=== PATIENT | male | born 1970 | race Caucasian/White ===

== ENCOUNTER → 2018-07-08 | Outpatient (CLI) | payer OTHER ==
[2018-07-08 15:05] LABS: HCT 47.3 % (39.0-53.0); HGB 15.9 gm/dL (13.0-17.5); MCH 29.9 pg (25.0-35.0); MCHC 33.5 g/dL (31.0-37.0); MCV 89.3 fL (80.0-100.0); Mean Platelet Volume 6.7; Platelet Count 291 k/uL (150-450); RDW 12.9 % (11.5-15.5); WBC 9.5 k/uL (3.8-10.6)
[2018-07-08 15:18] LABS: Anion Gap 6 mmol/L; Blood Urea Nitrogen 13 mg/dL (9-20); Carbon Dioxide 29 mmol/L (22-30); Chloride 105 mmol/L (98-107); Potassium 4.1 mmol/L (3.5-5.1); Sodium 140 mmol/L (137-145)
== END ==
LOC: LABPAT 14:15
PROVIDERS: ATTEND Internal Medicine Interventional Cardiology
DX: Z01.812 Encounter for preprocedural laboratory examination (principal); E78.2 Mixed hyperlipidemia; R07.9 Chest pain, unspecified; R94.39 Abnormal result of other cardiovascular function study
CPT/HCPCS: 36415; 80051; 82565; 84520; 85027

== ENCOUNTER 2018-07-20 09:18 | Day surgery (SDC) | payer OTHER ==
[~2018-07-20 09:18] MED LIST: ALPRAZolam 0.25 MG TAB PO PRN; ALPRAZolam 0.5 MG TAB PO PRN; ASPIRIN 325 MG TAB PO STA; ATORVASTATIN 80 MG TAB PO STA; NITROGLYCERIN SL TABS 0.4 MG TAB SUBLINGUAL PRN; SODIUM CHLORIDE 0.9% 1,000 ML in EMPTY BAG 1 BAG IV ONE
[2018-07-20] MEDS ORDERED: fentaNYL (PF) 50 MCG/ML 2 ML AMP ONE (10:29)
[2018-07-20] MEDS ORDERED: HEPARIN SODIUM 1,000 UN/ML (10ML VL) ONE (10:29)
[2018-07-20] MEDS ORDERED: VERAPAMIL 2.5 MG/ML 2 ML AMP ONE (10:29)
[2018-07-20] MEDS ORDERED: fentaNYL (PF) 50 MCG/ML 2 ML AMP IV ONE (10:38)
[2018-07-20] MEDS ORDERED: LIDOCAINE 1% INJ 10MG/ML (20 ML MDV) SQ ONE (10:47)
[2018-07-20] MEDS ORDERED: MIDAZOLAM 2 MG/2 ML VIAL ONE (10:48)
[2018-07-20] MEDS ORDERED: VERAPAMIL SYRINGE (5 MG/10 ML) INTRAARTER ONE (10:49)
[2018-07-20] MEDS: MIDAZOLAM 2 MG/2 ML VIAL IV ONE ×2 (10:49→11:05)
[2018-07-20] MEDS ORDERED: IOPAMIDOL-370 50ML BTL INJ ONE ×2 (10:59→11:28)
[2018-07-20] MEDS ORDERED: ADENOSINE 180 MG in SODIUM CHLORIDE 0.9% 30 ML IVP ONE (11:12)
[2018-07-20] MEDS ORDERED: PRASUGREL 10 MG TAB ONE (11:16)
[2018-07-20] MEDS ORDERED: PRASUGREL 10 MG TAB PO ONE (11:18)
[2018-07-20] MEDS ORDERED: IOPAMIDOL-370 125ML BTL INJ ONE (11:20)
[2018-07-20] MEDS ORDERED: NITROGLYCERIN 1000MCG/10ML SYRINGE INTRACORON ONE (11:22)
[2018-07-20] MEDS ORDERED: RX INFO: IV CONTRAST WAS GIVEN 1 EACH MISC MISCELLANE PRN (11:43)
[2018-07-20] MEDS ORDERED: NITROGLYCERIN SL TABS 0.4 MG TAB SUBLINGUAL PRN (11:43)
[2018-07-20] MEDS ORDERED: MAG HYDROX/AL HYDROX/SIMETH 30 ML CUP PO PRN (11:43)
[2018-07-20] MEDS ORDERED: ZOLPIDEM 5 MG TAB PO PRN (11:43)
[2018-07-20] MEDS ORDERED: ATROPINE SULFATE 0.1 MG/ML 10ML SYRINGE IV PRN (11:43)
[2018-07-20] MEDS ORDERED: SODIUM CHLORIDE 0.9% 1,000 ML IV SCH (11:45)
--- NOTE | 2018-07-20 12:00 | CC ---
CARDIAC CATHETERIZATION REPORT Mr. Morejon is a 48-year-old male with prior history of smoking, history of hyperlipidemia, who has been complaining of episode of chest discomfort as well as dyspnea on exertion. Because of that, he underwent a myocardial perfusion imaging that revealed inferolateral wall inducible ischemia. In view of that, recommendation made regarding cardiac catheterization. The procedures, risks and complications were discussed with the patient who is in full understanding and agreement. PROCEDURE: Patient was brought to propagator laborer in a fasting semi-sedated state after receiving fentanyl and Benadryl and achieving moderate conscious sedated state. Using Xylocaine anesthesia and Seldinger technique, a 6-Hong Konger sheath was introduced in the right radial artery. Selective right and left coronary angiography was performed using 5- Hong Konger 3.5 bend right and left Itzel catheter, multiple views of the coronary artery including hemiaxial views obtained. Following that, a 5-Hong Konger tight pigtail catheter was introduced in the left was introduced in the left ventricle and a 30 degree CHAVARRIA view of the left ventricle was obtained. Following that, catheters were removed, images were reviewed. FINDINGS: FLUOROSCOPY: There is mild calcification involving the proximal LAD. LEFT MAIN: This is a short size vessel, bifurcating into left circumflex, left anterior descending artery. Left main coronary artery has no evidence of high-grade stenosis. LEFT ANTERIOR DESCENDING ARTERY: This is a large-sized vessel, reaching toward the apex, tapers down distal third, giving rise to a large, very proximal diagonal branch. At the takeoff of the first septal deflash and wash operator, there is an eccentric 60%-70% stenosis at the mid segment of the vessel, has mild intimal disease with no evidence of high- grade stenosis up to 30%. LEFT CIRCUMFLEX: This is a large dominant vessel, bifurcating distally into PDA and posterolateral segment branches, giving rise to 2 obtuse marginal branches. The left circumflex as well as branches have no evidence of obstructive coronary artery disease. RIGHT CORONARY ARTERY: This is a small nondominant vessel that has no evidence of high- grade stenosis. LEFT VENTRICULOGRAM: Left ventriculogram is performed in 30 degree CHAVARRIA view and revealed normal left ventricular size and systolic function. Ejection fraction is 60%. There was no significant mitral regurgitation. HEMODYNAMICS: There was no gradient across the aortic valve. The left ventricular end- diastolic pressure was 8-10 mmHg. CONCLUSION: 1. Borderline significant lesion in the proximal left anterior descending artery. 2. Left dominant system. 3. Normal left ventricular size and systolic function. RECOMMENDATION: In view of finding anatomy, I recommend proceeding with a fractional flow reserve measurement of the LAD lesion and depending on that, further recommendation can be made. Those findings and recommendations were discussed with the patient and he was in full understanding and agreement. MMELINAL / MIYAN: [id number] /
--- NOTE | 2018-07-20 12:06 | PTCA ---
PERCUTANEOUSTRANS CORORONARY ANGIOGRAPHY ANGIOPLASTY PROCEDURE NOTE AND FRACTIONAL FLOW RESERVE MEASUREMENT: Mr. Morejon is a 48-year-old male with known history of hyperlipidemia and a prior history of smoking, who has been complaining of episode of chest discomfort and dyspnea on exertion. He had an abnormal myocardial perfusion imaging and underwent cardiac catheterization that revealed a borderline significant lesion in the proximal LAD. In view of that, recommendation was made regarding fractional flow reserve measurement and depending on that, further recommendation will be made. Those findings and recommendation were discussed with the patient and he was in full understanding and agreement. PROCEDURE: A 6-Ethiopian FL 3.5 guiding catheter introduced into the system after cannulating the left main. A Doppler flow wire was advanced across the lesion and positioned in the distal LAD. Subsequently intravenous infusion of adenosine per protocol was performed and a fractional flow reserve was calculated at 71%. At that point, at 3.0 x 18 mm Xience Barbara stent was advanced, deployed and post dilated at 16 atmospheres. After the last inflation, after appropriate wait, the balloon and the guidewire were withdrawn back in the guiding catheter. Images were obtained, repeated. Those images reveal stable successful stenting. At that point, the guiding catheter, the balloon and the guidewire were removed. The sheath was removed. Hemostasis was obtained with deployment of a TR band. There was no immediate complication. Patient was returned to his room in stable condition. Of note, the patient had no chest discomfort or EKG changes with the inflation. He received 10,000 units of intravenous heparin as well as intra-arterial verapamil. His ACT was measured above 300. RESULTS: Successful stenting of the proximal left anterior descending artery with reduction of stenosis from 70% to 0% with a preangioplasty significant fractional flow reserve. RECOMMENDATION: Patient will be continued on aspirin, Effient, and statin. The importance of dual antiplatelet treatment were discussed with the patient his family who are in full understanding and agreement. Duration of procedure is 40 minutes. MMODL / IJN: [id number] /
--- NOTE | 2018-07-20 12:09 | LTR ---
DATE OF SERVICE: 07/20/2018 RE: Darleen Jose Dear Dr. Landry: I had the pleasure to perform coronary angiography on Mr. Morejon at [facility] on July 20, 2018 and a full copy of the procedure note will be forwarded to you. In brief, he was found to have borderline significant lesion in the proximal LAD. I proceeded to measure the fractional flow reserve that suggested a hemodynamically significant lesion and based on those findings, he received a stent in the proximal LAD. I am hopeful that this procedure will stabilize his status and thank you again for allowing me to participate in this patient's care. Please feel free to call for any questions. Sincerely yours, MD MARIELLA Dupont / SEAN: [phone] /
[2018-07-20] MEDS ORDERED: METOPROLOL TARTRATE 25 MG TAB PO STA (12:32)
[2018-07-20] MEDS: METOPROLOL TARTRATE 25 MG TAB PO SCH (20:26)
[2018-07-21 07:27] LABS: Anion Gap 5 mmol/L; Blood Urea Nitrogen 12 mg/dL (9-20); Carbon Dioxide 24 mmol/L (22-30); Chloride 109 mmol/L (98-107); Glucose 119 mg/dL (74-99); Potassium 4.5 mmol/L (3.5-5.1); Sodium 138 mmol/L (137-145)
[2018-07-21] MEDS: METOPROLOL TARTRATE 25 MG TAB PO SCH (08:49)
[2018-07-21] MEDS ORDERED: ATORVASTATIN 80 MG TAB PO SCH (09:00)
[2018-07-21] MEDS ORDERED: ASPIRIN 81 MG PO SCH (09:00)
[2018-07-21 09:10] VITALS: BP 132/70; PULSE 72; RESP 16; TEMP 96.7
[2018-07-21 09:52] VITALS: BMI 35.4
--- NOTE | 2018-07-21 10:23 | PN ---
PROGRESS NOTE Mr. Morejon is a 48-year-old male who presented with evidence of abnormal myocardial perfusion imaging, underwent cardiac catheterization, was found to have a lesion in his proximal LAD and underwent successful stenting of that vessel. He is doing well this morning. He is denying any chest pain. His breathing has been stable. He has no dizziness or palpitation. He continues to be at this time on aspirin once a day, Effient 10 mg daily, Lipitor 80 mg daily, metoprolol tartrate 25 mg twice a day. PHYSICAL EXAMINATION: Blood pressure 132/70 with the heart rate in the 70s. LUNGS: Clear. HEART: Regular rate and rhythm. S1, S2. No S3. No rub. ABDOMEN: Soft, nontender. EXTREMITIES: No edema. Right radial pulse is intact. LAB DATA: Lab data revealed a BUN and creatinine 12 and 0.94. IMPRESSION: 1. Status post stenting of the left anterior descending artery. 2. Hyperlipidemia. RECOMMENDATION: Patient will be discharged home today and followed next week. The importance of dual antiplatelet treatment was discussed with the patient. MARIELLA / MIYAN: [id number] /
[2018-07-21] MEDS ORDERED: PRASUGREL 10 MG TAB PO SCH (12:00)
== END 2018-07-21 12:28 | disposition home or self-care (01) ==
LOC: CATHCVL 09:18 → 3SCARD 14:27 → CATHCVL 07-21 12:28
PROVIDERS: ATTEND Internal Medicine Interventional Cardiology
DX: I25.10 Atherosclerotic heart disease of native coronary artery without angina pectoris (principal); I25.84 Coronary atherosclerosis due to calcified coronary lesion; Z87.891 Personal history of nicotine dependence; E78.2 Mixed hyperlipidemia; E78.00 Pure hypercholesterolemia, unspecified; Z79.82 Long term (current) use of aspirin; Z79.899 Other long term (current) drug therapy
CPT/HCPCS: 93571; 93458; 85347; 80048; C9600; C1887; C1894; C1769; C1874; J2250; J2001; J3010; J0153; J1644; Q9967 ×2

== ENCOUNTER → 2018-10-22 | Outpatient (CLI) | payer BC ==
[2018-10-22 16:38] LABS: LDL Cholesterol,Calculated 63.2 mg/dL (0.0-131.0); VLDL Calculation 15.8 mg/dL (5.00-40.00)
== END | disposition home or self-care (01) ==
LOC: LABWHC1 08:47
PROVIDERS: ATTEND Nurse Practitioner Adult Health
DX: E78.2 Mixed hyperlipidemia (principal)
CPT/HCPCS: 36415; 80061; 84450; 84460

== ENCOUNTER → 2018-12-17 | Outpatient (CLI) | payer BC ==
--- NOTE | 2018-12-17 11:42 | XR ---
EXAMINATION TYPE: XR lumbar spine 2 or 3V DATE OF EXAM: 12/17/2018 CLINICAL HISTORY: pain TECHNIQUE: Three views of the lumbar spine are submitted. COMPARISON: None. FINDINGS: There are 5 lumbar type vertebral bodies identified. The lumbar spine shows satisfactory alignment w ithout evidence of acute fracture or dislocation. Vertebral body heights are within normal limits. Mild degenerative disc space narrowing and spondylosis. The overlying soft tissue appears unremarkab le. IMPRESSION: No acute fracture or dislocation is seen in the lumbar spine. ICD 10 NO FRACTURE, INITIAL EVALUATION
--- NOTE | 2018-12-17 11:43 | XR ---
EXAMINATION TYPE: XR Hip Complete RT DATE OF EXAM: 12/17/2018 CLINICAL HISTORY: pain TECHNIQUE: AP and frogleg views of the right hip are obtained. COMPARISON: None. FINDINGS: There is no acute fracture/dislocation evident. The joint space appears within normal li mits. The overlying soft tissue appears unremarkable. IMPRESSION: 1. There is no acute fracture or dislocation. ICD 10 NO FRACTURE, INITIAL EVALUATION
== END | disposition home or self-care (01) ==
LOC: RADXRMAIN 09:54
PROVIDERS: ATTEND Family Medicine
DX: M16.11 Unilateral primary osteoarthritis, right hip (principal); M54.9 Dorsalgia, unspecified
CPT/HCPCS: 72100; 73502

== ENCOUNTER → 2019-05-08 | Outpatient (CLI) | payer BC ==
[2019-05-08 17:04] LABS: Chol/HDL Ratio 4.08
== END | disposition home or self-care (01) ==
LOC: LABWHC1 09:32
PROVIDERS: ATTEND Nurse Practitioner Adult Health
DX: E78.2 Mixed hyperlipidemia (principal)
CPT/HCPCS: 36415; 80061; 84450; 84460

== ENCOUNTER → 2019-08-22 | Outpatient (CLI) | payer BC ==
--- NOTE | 2019-08-22 21:51 | CONS ---
CONSULTATION REASON FOR CONSULTATION: Sleep apnea. This 49-year-old male patient coming in for sleep apnea evaluation. He was referred to me by his brand marketing intern. He has chronic fatigue and sleepiness and tiredness. He can fall asleep within few minutes. His sleep is very deep and he is very difficult to arouse in the middle of the night and wakes up somewhat non refreshed and tired during the day. He goes to bed between 930 and 10 p.m., wakes up between 4:30 and 4:45 am in the morning. He is a commercial plumber by occupation. He snores. He has a large and severe overbite. He stops breathing at night as reported by his . He has had previous history of coronary intervention and stenting. Currently free of any chest pain. No history of any motor vehicle accident because of feeling drowsy or sleepy. His [place] score is 8. There is a significant history of weight gain in the order of 25 pounds over the past 1 year. PAST MEDICAL HISTORY: Coronary artery disease with previous coronary intervention and stenting back in 2018. Hyperlipidemia and obesity. PAST SURGICAL HISTORY: Includes cardiac catheterization and stenting in the heart. DRUG ALLERGIES: Not known. 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 FAMILY HISTORY: The patient is adopted and family history is not known. SOCIAL HISTORY: He is an ex-smoker. Quit smoking in December of 2016. No history of alcohol. No history of IV drugs. MEDICATIONS: He is on metoprolol 25 mg p.o. twice a day, Lipitor 80 mg p.o. daily and Yajaira aspirin 81 mg p.o. daily. SOCIAL HISTORY: Ex-smoker. Quit smoking in december of 2016. No history of alcohol. No history of substance abuse. REVIEW OF SYSTEMS: Fourteen-point review of system was done. No sleep paralysis. No hallucinations. No cataplexy. No restlessness in lower extremities. No sleepwalking or sleep talking. No anxiety. No depression. No claustrophobia. No report grinding of the teeth. He has a severe overbite. The BP is 127/71, pulse 54, respirations 16, temp 97.9. Saturation 96% on room air. Height is 6' 0 ", weight is 264 and neck size 17.5 inches, BMI 35.4. General appearance: Calm and comfortable. Head atraumatic normocephalic. NECK: Supple. No JVD. No goiter or neck masses. Mallampati class IV. LUNGS: Clear. Otherwise breath sounds are equal and symmetrical. HEART: Sounds are regular rate and rhythm. Normal S1, S2. No S3, S4. No murmurs. ABDOMEN: Soft, nontender. No organomegaly. EXTREMITIES: No edema. No cyanosis or clubbing. NEUROLOGICAL: The patient is awake, alert and oriented x3. No focal neurological deficits. PSYCHIATRICALLY negative for anxiety or depression. IMPRESSION: 1. Hypersomnia Mont[place]ello score of 8, consider obstructive sleep apnea as the patient has snoring, witnessed apneas. Anatomically, the patient has severe overbite with a Mallampati class 4. 2. Overbite with significant displacement of the lower jaw causing significant crowding of the posterior pharynx with a Mallampati class 4. 3. Obesity BMI 35.4, with interval 25 pounds weight gain. 4. Coronary artery disease with previous coronary stenting in 2018. 5. Hyperlipidemia. 6. Ex-smoker. PLAN: 1. Encourage weight loss. 2. Sleep on his side. 3. Keep the head of the bed elevated 30 degrees at all times. 4. Proceed with a home sleep study to investigate this patient for obstructive sleep apnea. There is a higher suspicion for the patient having obstructive sleep apnea based on his clinical anatomic features. MMODL / IJN: [id number] /
== END | disposition home or self-care (01) ==
LOC: SLEEP 13:59
PROVIDERS: ATTEND Internal Medicine Critical Care Medicine
DX: G47.33 Obstructive sleep apnea (adult) (pediatric) (principal); E66.9 Obesity, unspecified; Z68.35 Body mass index [BMI] 35.0-35.9, adult; I25.10 Atherosclerotic heart disease of native coronary artery without angina pectoris; E78.5 Hyperlipidemia, unspecified; M26.29 Other anomalies of dental arch relationship; S03.00XA Dislocation of jaw, unspecified side, initial encounter; R53.82 Chronic fatigue, unspecified; Z87.891 Personal history of nicotine dependence; Z95.5 Presence of coronary angioplasty implant and graft; Z79.82 Long term (current) use of aspirin; Z79.899 Other long term (current) drug therapy
CPT/HCPCS: 99211

== ENCOUNTER 2023-03-22 05:58 | Day surgery (SDC) | payer BC ==
[~2023-03-22 05:58] MED LIST changes: -ASPIRIN 325 MG TAB PO STA; -ATORVASTATIN 80 MG TAB PO STA; +HEPARIN SODIUM,PORCINE (1 ML) 2,500 UNIT in SODIUM CHLORIDE 0.9% 250 ML IRRIGATION PRN; +HEPARIN SODIUM,PORCINE 10,000 UNIT in SODIUM CHLORIDE 0.9% 1,000 ML IRRIGATION PRN; -SODIUM CHLORIDE 0.9% 1,000 ML in EMPTY BAG 1 BAG IV ONE; +SODIUM CHLORIDE 0.9% 1,000 ML in EMPTY BAG 1 BAG IV SCH
[2023-03-22 06:53] LABS: Glucose,Whole Blood 121 mg/dL (70-110)
[2023-03-22 06:56] LABS: Basophils % (A) 1 %; Eosinophils # (A) 0.2 k/uL (0-0.7); Eosinophils % (A) 3 %; HCT 46.2 % (39.0-53.0); HGB 15.9 gm/dL (13.0-17.5); Lymphocytes # (A) 2.3 k/uL (1.0-4.8); Lymphocytes % (A) 30 %; MCHC 34.3 g/dL (31.0-37.0); MCV 87.4 fL (80.0-100.0); Mean Platelet Volume 8.2; Monocytes # (A) 0.5 k/uL (0-1.0); Monocytes % (A) 7 %; Neutrophils # (A) 4.4 k/uL (1.3-7.7); Neutrophils % (A) 58 %; Platelet Count 241 k/uL (150-450); RBC 5.28 m/uL (4.30-5.90); RDW 12.6 % (11.5-15.5); WBC 7.6 k/uL (3.8-10.6)
[2023-03-22] MEDS ORDERED: ATORVASTATIN 80 MG TAB PO ONE (07:00)
[2023-03-22] MEDS ORDERED: ASPIRIN 325 MG TAB PO ONE (07:00)
[2023-03-22 07:10] VITALS: RESP 14; TEMP 97.9
[2023-03-22 07:10] LABS: African American GFR (CKD) >90 (>60 ml/min/1.73 sqM); Anion Gap 6 mmol/L; Blood Urea Nitrogen 18 mg/dL (9-20); Calcium 8.7 mg/dL (8.4-10.2); Carbon Dioxide 24 mmol/L (22-30); Chloride 106 mmol/L (98-107); Glucose 129 mg/dL (74-99); Non-African American GFR(CKD) 85 (>60 ml/min/1.73 sqM); Potassium 4.2 mmol/L (3.5-5.1); Sodium 136 mmol/L (137-145)
[2023-03-22] MEDS ORDERED: fentaNYL (PF) 50 MCG/ML 2 ML AMP ONE ×2 (07:27→10:31)
[2023-03-22] MEDS ORDERED: HEPARIN SODIUM 1,000 UN/ML (10ML VL) ONE (07:27)
[2023-03-22] MEDS ORDERED: VERAPAMIL 2.5 MG/ML 2 ML AMP ONE (10:31)
[2023-03-22] MEDS ORDERED: fentaNYL (PF) 50 MCG/ML 2 ML AMP IVP ONE (10:45)
[2023-03-22] MEDS ORDERED: LIDOCAINE 1% INJ 10MG/ML (5 ML VIAL-PF) SQ ONE (10:48)
[2023-03-22] MEDS ORDERED: VERAPAMIL SYRINGE (5 MG/10 ML) INTRAARTER ONE (10:54)
[2023-03-22] MEDS: HEPARIN SODIUM 1,000 UN/ML (10ML VL) IV ONE ×3 (10:57→11:31)
[2023-03-22] MEDS ORDERED: CLOPIDOGREL 75 MG TAB ONE (11:03)
[2023-03-22] MEDS ORDERED: CLOPIDOGREL 75 MG TAB PO ONE (11:05)
[2023-03-22] MEDS ORDERED: NITROGLYCERIN 1000MCG/10ML SYRINGE INTRACORON ONE (11:09)
[2023-03-22] MEDS ORDERED: IOPAMIDOL-370 100ML BTL INJ ONE ×2 (11:15→11:30)
[2023-03-22] MEDS ORDERED: RX INFO: IV CONTRAST WAS GIVEN 1 EACH MISC MISCELLANE PRN (11:50)
[2023-03-22] MEDS ORDERED: NITROGLYCERIN SL TABS 0.4 MG TAB SUBLINGUAL PRN (11:50)
[2023-03-22] MEDS ORDERED: MAG HYDROX/AL HYDROX/SIMETH 30 ML CUP PO PRN (11:50)
[2023-03-22] MEDS ORDERED: ZOLPIDEM 5 MG TAB PO PRN (11:50)
[2023-03-22] MEDS ORDERED: ATROPINE SULFATE 0.1 MG/ML 10ML SYRINGE IV PRN (11:50)
[2023-03-22] MEDS ORDERED: SODIUM CHLORIDE 0.9% 1,000 ML in EMPTY BAG 1 BAG IV SCH (12:00)
--- NOTE | 2023-03-22 12:00 | P.CARDCATH ---
Date of Procedure: 03/22/23 Description of Procedure: Cardiac Catheterization: The patient is a 52-year-old male with known history of CAD, hyperlipidemia and diabetes who presented with symptoms of chest discomfort, exertional pattern. Recommendations were made regarding cardiac catheterization, the risks and the complications were discussed with the patient who is in full understanding and agreement. Procedure Description: Patient was brought to brick and blocker aid labor in fasting semi-sedated state after receiving Fentanyl and Benadryl achieiving moderate conscious sedated state. Using Xylocaine Anesthesia and Seldinger technique, a 6-Honduran sheath was introduced in the right radial artery . Subsequently, selective coronary angiography was performed using a 5-Honduran 3.5 bend Itzel catheter. Multiple views of the coronary artery including hemiaxial views were obtained. The 5-Honduran pigtail catheter was used to cross the aortic valve and LVEDP was calculated. PCI: After removing the catheters a 6-Honduran EBU 3.75 guiding catheter was introduced and after cannulating the left main an Omni Doppler flow wire was positioned in the distal LAD, IFR was measured at 0.94. Subsequently the wire was withdrawn and introduced and the left PDA. After that the 2.5 x 12 mm Treck balloon was advanced and one inflation at 8 lucero was done, after removing the balloon 3.0 x 23 mm Xience rosanne point stent deployed at 16 lucero. After removing the balloon the IFR was measured at 0.93. Subsequently the wire was removed images were obtained and revealed stable successful stenting. Following that, catheter and sheath were removed. Hemostasis was obtained with deployment of TR band . There was no immediate complication. Patient was returned to room in stable condition. Of note, the patient received a total of 8000 units of intravenous heparin as well as intra-arterial verapamil. He received an oral loading dose of clopidogrel. He had no chest discomfort or EKG changes with the inflations. Findings: Left main: This is a short sized vessel, bifurcating into LAD and left circumflex, left main has no high-grade stenosis LAD: This is a large size vessel, tapers down in the distal third, giving rise to a very proximal diagonal branch. The LAD stented segment has a 50% in-stent restenosis. There is moderate plaque distal to the stent with no high-grade stenosis Left circumflex: This is a large dominant vessel, giving rise to 3 obtuse marginal branch, distally bifurcating PDA and PLV, the PDA has a 90% stenosis him on the rest of the vessel has no high-grade stenosis RCA: This is a small nondominant vessel that has a 50% plaque in the midsegment Left Ventriculogram: Not performed Hemodynamics: There was no gradient across the aortic valve , LVEDP was 18-22 mmHg Conclusion: 1. Severe stenosis in the left PDA 2. Moderate disease in the stented segment of the LAD with an IFR of 0.94 3. Moderate disease in the mid nondominant RCA 4. Successful stenting of the left PDA with reduction of stenosis from 80% to 0% with IFR post procedure of 0.93 Recommendations: The patient will continue on aspirin and Plavix without any interruption X months in addition to aggressive coronary risks modifications. The findings and the recommendations were discussed with the patient and the family and they were in full understanding and agreement. Duration of sedation is 47 minutes.
[2023-03-22] MEDS ORDERED: SODIUM CHLORIDE 0.9% 250 ML IV ONE (12:10)
[2023-03-22] MEDS ORDERED: SODIUM CHLORIDE 0.9% 500 ML 500 ML IV ONE (12:12)
[2023-03-22 19:17] VITALS: BP 139/82; PULSE 48
[2023-03-22] MEDS ORDERED: ATORVASTATIN 80 MG TAB PO SCH (21:00)
[2023-03-22] MEDS ORDERED: METOPROLOL TARTRATE 25 MG TAB PO SCH (21:00)
[2023-03-23] MEDS ORDERED: ASPIRIN 81 MG PO SCH (09:00)
[2023-03-23] MEDS ORDERED: CLOPIDOGREL 75 MG TAB PO SCH (09:00)
== END 2023-03-22 15:43 | disposition home or self-care (01) ==
LOC: CATHCVL 05:58
PROVIDERS: ATTEND Internal Medicine Interventional Cardiology
DX: I25.10 Atherosclerotic heart disease of native coronary artery without angina pectoris (principal); E78.5 Hyperlipidemia, unspecified; E11.9 Type 2 diabetes mellitus without complications; I10 Essential (primary) hypertension; F17.210 Nicotine dependence, cigarettes, uncomplicated; Z79.82 Long term (current) use of aspirin; Z79.899 Other long term (current) drug therapy
CPT/HCPCS: 93458; 93799; 80048; 85025; C9600; C1887; C1769 ×3; C1894; C1725; C1874; J2001; J3010; J1644; Q9967; J2305

== ENCOUNTER → 2023-04-14 | Outpatient (CLI) | payer BC ==
[2023-04-14 11:17] LABS: African American GFR (CKD) 88 (>60 ml/min/1.73 sqM); Blood Urea Nitrogen 15 mg/dL (9-20); Non-African American GFR(CKD) 76 (>60 ml/min/1.73 sqM)
--- NOTE | 2023-04-15 06:49 | CT ---
EXAMINATION TYPE: CT abdomen wo/w con CT DLP: 2117 mGycm, Automated exposure control for dose reduction was used. DATE OF EXAM: 04/14/2023 11:39 AM COMPARISON: None available CLINICAL INDICATION:Male, 53 years old with history of N28.1 Left kidney cyst; left renal cyst TECHNIQUE: Multiphase CT of the abdomen following the administration of 100 cc of Isovue 300 IV cont rast material and oral contrast. Coronal and sagittal reformats were performed. FINDINGS: LOWER CHEST: Visualized lungs are clear. Coronary artery calcification. ABDOMEN LIVER: Unremarkable GALLBLADDER AND BILE DUCTS: Unremarkable. PANCREAS: Unremarkable. SPLEEN: Unremarkable. ADRENAL GLANDS: Unremarkable. KIDNEYS AND URETERS: No evidence of hydronephrosis or renal calculus. Both kidneys enhance symmetrica lly. Malformed left kidney with duplicated appearance. Left lower pole 3.3 cm thin-walled nonenhancin g cystic lesion. No nodularity identified. Contrast demonstrated within both collecting systems on th e delayed phase. STOMACH AND BOWEL: Stomach and duodenum are unremarkable. Enteric contrast reaches the ascending colo n. The appendix is within normal limits. No focal bowel wall thickening or surrounding inflammatory c hanges. No evidence of bowel obstruction. PERITONEUM: No evidence of pneumoperitoneum or free fluid. VASCULATURE: Mild atherosclerotic calcifications are present throughout the abdominal aorta and its b ranches. No evidence of aortic aneurysm. MUSCULOSKELETAL: No acute osseous abnormalities LYMPH NODES: No gross evidence for lymphadenopathy. SOFT TISSUE/ABDOMINAL WALL: Unremarkable IMPRESSION: 1. No acute abdominal process. 2. Malformed left kidney with duplicated appearance. Left lower pole 3.3 cm thin-walled nonenhancing cystic lesion is most consistent with a benign parapelvic cyst.
== END | disposition home or self-care (01) ==
LOC: RADCTMAIN 10:20
PROVIDERS: ATTEND Family Medicine
DX: N28.1 Cyst of kidney, acquired (principal); N28.89 Other specified disorders of kidney and ureter
CPT/HCPCS: 82565; 84520; 74170; 36415; Q9967

== ENCOUNTER → 2023-04-15 | Outpatient (CLI) | payer BC ==
--- NOTE | 2023-04-15 09:50 | NM ---
EXAMINATION TYPE: NM hepatobiliary w EF DATE OF EXAM: 04/15/2023 COMPARISON: CT abdomen 04/14/2023 CLINICAL INDICATION: Male, 53 years old with history of R94.5 ABNORMAL RESULTS OF LIVER FUNCTION STUD IES; TECHNIQUE: After the intravenous administration of 4.7 mCi Tc 99m Mebrofenin hepatobiliary scintigrap hy is performed. Immediate images post injection. FINDINGS: There is satisfactory initial accumulation of tracer by the liver. The gallbladder is visualized wit hin 2 minutes. The small bowel activity is noted within 8 minutes. At one hour 8 ounces of oral ens ure plus is given to mimic CCK and gallbladder ejection fraction is calculated at 86 %, in the normal range. Therefore there is no scintigraphic evidence of cystic or common bile duct obstruction to peters ggest acute cholecystitis or gallbladder dyskinesia. IMPRESSION: Exam is within normal limits.
== END | disposition home or self-care (01) ==
LOC: RADNMMAIN 06:54
PROVIDERS: ATTEND Family Medicine
DX: R94.5 Abnormal results of liver function studies (principal)
CPT/HCPCS: 78226; A9537

== ENCOUNTER 2023-07-27 13:24 | Emergency (ER) | payer OTHER, BC ==
[2023-07-27] MEDS ORDERED: BACITRACIN OINT 1 EACH PACKET TOPICAL ONE (13:36)
[2023-07-27 13:37] VITALS: RESP 18
--- NOTE | 2023-07-27 13:38 | ED ---
Upper Extremity HPI - General Source: patient, RN notes reviewed Mode of arrival: ambulatory Limitations: no limitations <Xavier Newby - Last Filed: 07/27/23 13:37> <Ellen Weiss - Last Filed: 07/28/23 21:31> - General Chief Complaint: Extremity Injury, Upper Stated Complaint: R Hand Injury-[facility] Time Seen by Provider: 07/27/23 13:37 - History of Present Illness Initial Comments: 53-year-old male presents emergency Department with chief complaint of right hand injury. Patient states at work he got his hand caught in a belt. Patient has pain and some bleeding of his digits 3 through 5. He states that the skin peeled away. His tetanus is up-to-date. (Xavier Newby) - Related Data Home Medications Medication Instructions Recorded Confirmed Aspirin 81 mg PO ONCE 07/20/18 03/22/23 metFORMIN HCL 500 mg PO 1700 03/19/23 03/22/23 Atorvastatin [Lipitor] 80 mg PO HS 03/22/23 03/22/23 Previous Rx's Medication Instructions Recorded Metoprolol Tartrate [Lopressor] 25 mg PO BID #180 tab 07/21/18 Nitroglycerin Sl Tabs [Nitrostat] 0.4 mg SUBLINGUAL Q5M PRN #25 tab 07/21/18 Clopidogrel [Plavix] 75 mg PO DAILY #90 tab 03/22/23 Cephalexin [Keflex] 500 mg PO Q6HR #28 cap 07/27/23 Allergies Allergy/AdvReac Type Severity Reaction Status Date / Time No Known Allergies Allergy Verified 07/27/23 13:34 Review of Systems ROS Other: All systems not noted in ROS Statement are negative. <Xavier Newby - Last Filed: 07/27/23 13:37> ROS Other: All systems not noted in ROS Statement are negative. <Ellen Weiss - Last Filed: 07/28/23 21:31> ROS Statement: Those systems with pertinent positive or pertinent negative responses have been documented in the HPI. Past Medical History Past Medical History: Diabetes Mellitus, Hyperlipidemia Additional Past Medical History / Comment(s): had tightness in chest last week at gym, ntg didn't help,legs are feeling heavier than usual scheduled for us at dr landry officed 03/25/23 History of Any Multi-Drug Resistant Organisms: None Reported Past Surgical History: Heart Catheterization With Stent Past Anesthesia/Blood Transfusion Reactions: No Reported Reaction Date of Last Stent Placement:: 2017 Past Psychological History: No Psychological Hx Reported Smoking Status: Former smoker Past Alcohol Use History: None Reported Past Drug Use History: None Reported <Xavier Newby - Last Filed: 07/27/23 13:37> General Exam Limitations: no limitations <Xavier Newby - Last Filed: 07/27/23 13:37> Limitations: no limitations General appearance: alert, in no apparent distress Head exam: Present: atraumatic, normocephalic, normal inspection Eye exam: Present: normal appearance, PERRL, EOMI. Absent: scleral icterus, conjunctival injection, periorbital swelling Extremities exam: Present: full ROM, tenderness, normal capillary refill, other (radial pulses 2+) Neurological exam: Present: alert, oriented X3 Psychiatric exam: Present: normal affect, normal mood Skin exam: Present: warm, dry, normal color. Absent: intact <Ellen Weiss - Last Filed: 07/28/23 21:31> - General Exam Comments Initial Comments: Visual Physical Exam Vital signs reviewed General: Well-appearing, nontoxic, no acute distress. Head: Normocephalic, atraumatic Eyes: PERRLA, EOMI ENT: Airway patent Chest: Nonlabored breathing Skin: No visual rash, normal skin tone Neuro: Alert and oriented 3 Musculoskeletal: See abrasions, skin tear digits 3 through 5 on the right hand (Xavier Newby) Course Vital Signs 07/27/23 07/27/23 13:30 15:58 Temperature 97.7 F 98 F Pulse Rate 52 L 62 Respiratory 18 18 Rate Blood Pressure 139/77 138/74 O2 Sat by Pulse 96 97 Oximetry Medical Decision Making <Xavier Newby - Last Filed: 07/27/23 13:37> <Ellen Weiss - Last Filed: 07/28/23 21:31> - Medical Decision Making I completed the quick note portion of this chart signed Xavier Reese PA-C) Was pt. sent in by a medical professional or institution (, PA, [employer]ER, urgent care, hospital, or long-term...) When possible be specific @ -No Did you speak to anyone other than the patient for history (EMS, parent, family, police, friend...)? What history was obtained from this source @ -No Did you review nursing and triage notes (agree or disagree)? Why? @ -I reviewed and agree with nursing and triage notes Were old charts reviewed (outside hosp., previous admission, EMS record, old EKG, old radiological studies, urgent care reports/EKG's, long-term records)? Report findings @ -No old charts were reviewed Differential Diagnosis (chest pain, altered mental status, abdominal pain women, abdominal pain men, vaginal bleeding, weakness, fever, dyspnea, syncope, headache, dizziness, GI bleed, back pain, seizure, CVA, palpatations, mental health, musculoskeletal)? @ -Differential Musculoskeletal Muscular strain, contusion, ligament sprain, fracture, arthritis, septic arthritis, bursitis, cellulitis, muscle spasm, nerve compression, DVT, arterial occlusion, herpes zoster, electrolyte abnormality, tumor.... This is not meant to be in all inclusive list EKG interpreted by me (3pts min.). @ -None X-rays interpreted by me (1pt min.). @ -X-ray of the hand shows fracture of the fourth digit distal phalanx CT interpreted by me (1pt min.). @ -None done U/S interpreted by me (1pt. min.). @ -None done What testing was considered but not performed or refused? (CT, X-rays, U/S, labs)? Why? @ -None What meds were considered but not given or refused? Why? @ -None Did you discuss the management of the patient with other professionals (professionals i.e. , PA, [employer], lab, RT, psych nurse, social insurance administrator, registered pharmacy technician, teacher, commercial loan officer, case briefer)? Give summary @ -No Was smoking cessation discussed for >3mins.? @ -No Was critical care preformed (if so, how long)? @ -No Were there social determinants of health that impacted care today? How? (Homelessness, low income, unemployed, alcoholism, drug addiction, transportation, low edu. Level, literacy, decrease access to med. care, group home, rehab)? @ -No Was there de-escalation of care discussed even if they declined (Discuss DNR or withdrawal of care, Hospice)? DNR status @ -No What co-morbidities impacted this encounter? (DM, HTN, Smoking, COPD, CAD, Cancer, CVA, ARF, Chemo, Hep., AIDS, mental health diagnosis, sleep apnea, morbid obesity)? @ -None Was patient admitted / discharged? Hospital course, mention meds given and route, prescriptions, significant lab abnormalities, going to OR and other pertinent info. @ -Charged. Patient presented to the emergency department with chief complaint of hand injury. Patient has abrasions and bleeding to the 3-5th digits. X-ray obtained which shows fracture of the distal phalanx of the fourth digit. The placed in a finger splint. Wounds were cleaned, bacitracin applied, was dressed. Patient given 2 g Ancef IM. He will follow up with orthopedics, prescriptions for Keflex sent to the patient's pharmacy. Patient stable at time of discharge. Case discussed with Dr. Jay Undiagnosed new problem with uncertain prognosis? @ -No Drug Therapy requiring intensive monitoring for toxicity (Heparin, Nitro, Insulin, Cardizem)? @ -No Were any procedures done? @ -No Diagnosis/symptom? @ -finger fracture Acute, or Chronic, or Acute on Chronic? @ -acute Uncomplicated (without systemic symptoms) or Complicated (systemic symptoms)? @ -uncomplicated Side effects of treatment? @ -No Exacerbation, Progression, or Severe Exacerbation? @ -No Poses a threat to life or bodily function? How? (Chest pain, [place], [place], pneumonia, PE, COPD, DKA, ARF, appy, cholecystitis, CVA, Diverticulitis, Homicidal, Suicidal, threat to staff... and all critical care pts) @ -No (Ellen Weiss) Disposition <Xavier Newby - Last Filed: 07/27/23 13:37> Is patient prescribed a controlled substance at d/c from ED?: No <Ellen Weiss - Last Filed: 07/28/23 21:31> Clinical Impression: Open fracture, Finger fracture Disposition: HOME SELF-CARE Condition: Stable Instructions (If sedation given, give patient instructions): Finger Fracture (ED) Additional Instructions: Please follow up with your primary care provider and orthopedics. Return to the emergency department for new or worsening symptoms. Prescriptions: Cephalexin [Keflex] 500 mg PO Q6HR #28 cap Referrals: Rigoberto Landry DO [Primary Care Provider] - 1-2 days Armen Abdul MD [STAFF PHYSICIAN] - 1-2 days
--- NOTE | 2023-07-27 14:40 | XR ---
EXAMINATION TYPE: XR hand complete RT DATE OF EXAM: 07/27/2023 COMPARISON: None HISTORY: Pain in digits 3 through 5 crush injury TECHNIQUE: 3 view right hand FINDINGS: Joint spaces are preserved. There is a fracture through the distal phalanx ring finger. Mild soft tissue swelling may be present. No additional fractures are evident. IMPRESSION: 1. Transverse fracture mid diaphysis distal phalanx right ring finger with overlying soft tissue swe lling. 2. There may be some soft tissue swelling of the distal finger and fifth digit.
[2023-07-27] MEDS ORDERED: ceFAZolin 1,000 MG VIAL (IM USE) IM STA (15:10)
[2023-07-27 16:06] VITALS: BP 138/74; PULSE 62; TEMP 98
== END 2023-07-27 16:09 | disposition home or self-care (01) ==
LOC: EC 13:24
DX: S62.634B Displaced fracture of distal phalanx of right ring finger, initial encounter for open fracture (principal); E11.9 Type 2 diabetes mellitus without complications; E78.5 Hyperlipidemia, unspecified; Z79.84 Long term (current) use of oral hypoglycemic drugs; Z79.82 Long term (current) use of aspirin; Z79.899 Other long term (current) drug therapy; Z87.891 Personal history of nicotine dependence; W23.0XXA Caught, crushed, jammed, or pinched between moving objects, initial encounter; Y99.0 Civilian activity done for income or pay
CPT/HCPCS: 73130; 99283; 96372; J0690

== ENCOUNTER → 2024-01-21 | Outpatient (CLI) | payer BC ==
[2024-01-21 11:17] LABS: ALT 33 U/L (10-49); AST 25 U/L (14-35); Albumin 4.3 g/dL (3.8-4.9); Albumin/Globulin Ratio 1.79 Ratio (1.60-3.17); Alkaline Phosphatase 82 U/L (41-126); BUN/Creat Ratio 15.83 Ratio (12.00-20.00); Carbon Dioxide 25.7 mmol/L (21.6-31.8); Chloride 103 mmol/L (96-109); Globulin 2.4 g/dL (1.6-3.3); Glucose 101 mg/dL (70-110); LDL Cholesterol,Calculated 52.1 mg/dL (0.0-131.0); Potassium 4.5 mmol/L (3.5-5.5); Sodium 138 mmol/L (135-145); Total Bilirubin 0.8 mg/dL (0.3-1.2); Total Protein 6.7 g/dL (6.2-8.2); VLDL Calculation 10.14 mg/dL (5.00-40.00)
== END | disposition home or self-care (01) ==
LOC: LABWHC1 08:06
PROVIDERS: ATTEND Internal Medicine Interventional Cardiology
DX: I10 Essential (primary) hypertension (principal); E78.2 Mixed hyperlipidemia
CPT/HCPCS: 36415; 80053; 80061

== ENCOUNTER → 2024-07-24 | Outpatient (CLI) | payer BC ==
[2024-07-24 14:53] LABS: ALT 44 U/L (10-49); AST 28 U/L (14-35); Chol/HDL Ratio 2.68 Ratio
== END | disposition home or self-care (01) ==
LOC: LABWHC1 12:39
PROVIDERS: ATTEND Internal Medicine Interventional Cardiology
DX: E78.2 Mixed hyperlipidemia (principal)
CPT/HCPCS: 36415; 80061; 84450; 84460